=== PATIENT | female | born 1990 | race Caucasian/White ===

== ENCOUNTER 2024-02-19 13:20 | Outpatient (CLI) | payer OTHER | END 2024-02-19 13:28 | disposition home or self-care (01) | LOC: NST 13:20 | PROVIDERS: ATTEND Obstetrics & Gynecology Maternal & Fetal Medicine | DX: Z34.82 Encounter for supervision of other normal pregnancy, second trimester (principal) ==

== ENCOUNTER 2024-05-21 13:15 | Inpatient (IN) | payer OTHER ==
[~2024-05-21] VITALS: Ht 157.5 cm; Wt 70.3 kg
[2024-05-31] VITALS (11 sets, daily range): BP systolic 103–132; BP diastolic 53–72; O2SAT 99
[2024-05-31] MEDS ORDERED: OXYTOCIN 500 ML IV SCH (10:00)
[2024-05-31] MEDS ORDERED: RINGERS SOLUTION,LACTATED 1,000 ML IV SCH (10:00)
[2024-05-31 10:48] LABS: PH,URINE 7.5 (5.0-8.0); URINE APPEARANCE Turbid; URINE BILIRRUBIN Negative (NEGATIVE); URINE BLOOD Large; URINE COLOR Yellow; URINE GLUCOSE Negative (NEGATIVE); URINE KETONE Negative (NEGATIVE); URINE LEUKOCYTE Trace; URINE NITRATE Negative; URINE PROTEIN 30 (NEGATIVE); URINE UROBILINOGEN 0.2 E.U./dl
[2024-05-31 10:50] LABS: URINE BACTERIA 293.5 uL (0.0-1933); URINE CAST 3.96 uL (0.0-1.40); URINE EPITHELIAL CELLS 18.5 uL (0.0-38.8); URINE RBC 2703.4 uL (0.0-20.8); URINE WBC 30.7 uL (0.0-23.2)
[2024-05-31 11:00] LABS: HEMATOCRIT 31.9 % (36.0-45.00); MEAN CORPUSCULAR HEMOGLOBIN 30.1 pg (27.00-32.0); MEAN CORPUSCULAR HGB CONC 34.6 g/dl (32.0-36.0); PLATELET COUNT 231 K/uL (150-450); RED BLOOD COUNT 3.67 M/uL (4.00-6.00); RED CELL DISTRIBUTION WIDTH 13.7 % (11.5-14.5)
[2024-05-31 11:13] LABS: URINE CRYSTALS FEW /HPF
[2024-05-31 11:31] LABS: INR 0.94; PARTIAL THROMBOPLASTIN TIME 25.6 SECONDS (22.0-34.0); PROTHROMBIN TIME 10.3 SECONDS (9.0-11.5)
[2024-05-31 11:48] LABS: ALBUMIN 2.6 gm/dL (3.4-5.0); BILIRUBIN TOTAL 0.33 mg/dL (0.3-1.2); CREATININE SERUM 0.49 mg/dL (0.55-1.02); GFR 146.35; GLOBULINA 3.6 G/DL (2.4-3.5); POTASSIUM 3.96 mEq/L (3.5-5.1); TOTAL PROTEIN 6.2 gm/dL (6.4-8.2)
[2024-05-31] MEDS ORDERED: PRENATAL CAPLE1 EAC1 PO (12:31)
[2024-05-31] MEDS ORDERED: MORPHINE SULFATE 4 MG/ML CARTRIDGE IV PRN (13:45)
[2024-05-31] MEDS ORDERED: DOCUSATE SODIUM 100MG CAP PO SCH (19:19)
[2024-05-31] MEDS ORDERED: CHLORHEXIDINE GLUCONATE 120 ML BOTTLE TP SCH (19:30)
[2024-05-31] MEDS ORDERED: OXYTOCIN 1,000 ML IV ONE (19:30)
[2024-05-31] MEDS ORDERED: IBUprofen 400 MG TABLET PO PRN (19:30)
[2024-05-31] MEDS ORDERED: ERYTHROMYCIN BASE OPHT 1GM EACH TUBE OP ONE (19:45)
[2024-06-01] VITALS: BP 100/60
[2024-06-01 06:55] LABS: HEMATOCRIT 29.7 % (36.0-45.00); HEMOGLOBIN 10.3 g/dL (12.0-15.00); MEAN CELL VOLUME 86.8 fL (80.00-100.00); MEAN CORPUSCULAR HEMOGLOBIN 30.1 pg (27.00-32.0); MEAN CORPUSCULAR HGB CONC 34.7 g/dl (32.0-36.0); PLATELET COUNT 218 K/uL (150-450); RED BLOOD COUNT 3.42 M/uL (4.00-6.00); RED CELL DISTRIBUTION WIDTH 13.8 % (11.5-14.5)
[2024-06-01 08:43] VITALS: BP 101/63
[2024-06-01 16:00] VITALS: BP 112/68
[2024-06-01 20:00] VITALS: BP 110/50
[2024-06-02] VITALS: BP 114/76
[2024-06-02 08:00] VITALS: BP 97/67
== END 2024-06-02 13:48 | disposition home or self-care (01) | DRG 807 ==
LOC: LDR 05-31 09:40 → OB/GYN 05-31 19:46
PROVIDERS: ADMIT Obstetrics & Gynecology Gynecology; ATTEND Obstetrics & Gynecology Gynecology
PROC: 10E0XZZ Delivery of Products of Conception, External Approach (ICD-10-PCS; principal; 2024-05-31)
PROC: 0UQG7ZZ Repair Vagina, Via Natural or Artificial Opening (ICD-10-PCS; 2024-05-31)
DX: O71.4 Obstetric high vaginal laceration alone (principal); Z37.0 Single live birth; Z3A.39 39 weeks gestation of pregnancy; Z20.822 Contact with and (suspected) exposure to COVID-19

== ENCOUNTER 2024-05-25 14:22 | Outpatient (CLI) | payer OTHER | END 2024-05-25 16:48 | disposition home or self-care (01) | LOC: NST 14:22 | PROVIDERS: ATTEND Obstetrics & Gynecology | DX: Z34.83 Encounter for supervision of other normal pregnancy, third trimester (principal) ==